=== PATIENT | female | born 1970 | race Caucasian/White ===

== ENCOUNTER → 2023-12-31 15:50 | Outpatient (REF) | payer OTHER, SELFPAY | LOC: HWRAD 15:50 | PROVIDERS: ATTENDING PHYSICIAN Physician Assistant | DX: Z87.891 Personal history of nicotine dependence (principal) | CPT/HCPCS: 71271 ==

== ENCOUNTER 2024-10-29 06:24 | Day surgery (SDC) | payer OTHER, SELFPAY | END 2024-10-29 10:00 | disposition home or self-care (01) | LOC: GI 06:24 | PROVIDERS: ATTENDING PHYSICIAN Internal Medicine Gastroenterology | DX: K64.8 Other hemorrhoids (principal); K57.30 Diverticulosis of large intestine without perforation or abscess without bleeding; R19.4 Change in bowel habit; R12 Heartburn; K31.89 Other diseases of stomach and duodenum; K63.5 Polyp of colon; Z98.84 Bariatric surgery status | CPT/HCPCS: 45380; 43239; 88305; 88342 ==

== ENCOUNTER → 2025-05-06 16:55 | Outpatient (REF) | payer OTHER, SELFPAY | LOC: WDC 16:55 | PROVIDERS: ATTENDING PHYSICIAN Nurse Practitioner Adult Health; FAMILY PHYSICIAN Physician Assistant | DX: Z01.419 Encounter for gynecological examination (general) (routine) without abnormal findings (principal); Z12.31 Encounter for screening mammogram for malignant neoplasm of breast | CPT/HCPCS: 77063; 77067 ==